=== PATIENT | female | born 2000 ===

== ENCOUNTER 2023-05-12 17:52 | Emergency (ER) | payer BC, SELFPAY ==
--- NOTE | ~2023-05-12 | XR_ITS ---
EXAMINATION: XR HAND, LEFT CLINICAL INFORMATION: Pain COMPARISON: None available. TECHNIQUE: PA, lateral, and oblique views of the left hand. FINDINGS: The bones and soft tissues are normal. No fracture. Alignment is anatomic. Joint spaces are maintained. No erosions or soft tissue calcifications. XR/XR hand LT min 3V IMPRESSION: Normal left hand.
--- NOTE | 2023-05-12 17:58 | ED.GENADULT ---
HPI - General Adult General Chief complaint: Extremity Injury, Upper Stated complaint: Hand lac Time Seen by Provider: 05/12/23 20:41 Source: patient Mode of arrival: ambulatory Limitations: no limitations History of Present Illness HPI narrative: 22-year-old female who presents emergency department for evaluation of a crush injury to the left thumb. She states she accidentally closed her door on her thumb. She had immediate pain. She sustained a laceration. She complains of pain with movement of her thumb . The patient does not know her last tetanus shot was given Related Data Allergies Allergy/AdvReac Type Severity Reaction Status Date / Time No Known Allergies Allergy Unverified 05/03/20 19:48 [No Known Allergies*] Review of Systems Review of Systems: Yes all other systems are reviewed and are negative [facility] Past Medical History [facility] Narrative: Past medical history: None Social History Social History Advance Directives: No Advance Directives Information Provided: No Physical Exam ED Vital Signs: Vital Signs - 24 hr 05/12/23 17:59 Temperature 98.1 F Pulse Rate 120 H Respiratory Rate 18 Blood Pressure 191/100 H Pulse Oximetry 99 Oxygen Delivery Method Room Air BMI result Body Mass Index 23.4 Vital signs revealed an elevated blood pressure of 191/100 and elevated pulse of 120-this is secondary to pain Exam: Extremities: The patient has a superficial laceration/crush injury to the tip of the thumb, she does have tenderness palpation over the MCP joint and PIP joint but has full range of motion passively and actively. Patient does have good light touch. Patient has thick nail serbian on her thumbnail and I am unable to determine if she has a subungual hematoma. She does minimal pain with pressure over the thumb nail. Psych: Pleasant, cooperative Course Course Course Narrative: This is an RME: Additional HPI, ROS, PE not included below will be deferred to primary provider. 22 yo f presents w/ lac to l 1st thumb sp jamming finger in car door. Very anxious. Tetanus staus unclear. plan- xray Medications Administered Discontinued Medications Generic Name Dose Route Start Last Admin Trade Name Freq PRN Reason Stop Dose Admin Diphtheria/Tetanus/Acell Pertussis 0.5 ml 05/12/23 17:57 05/12/23 20:29 Diphth,Pertus(Acell),Tet Adult 0.5 Ml Syringe IM 05/12/23 17:58 0.5 ml .ONCE ONE Administration Medical Decision Making Medical Decision Making MDM Narrative: 22-year-old female who presents emergency department for evaluation of crush injury to her left thumb, patient accidentally closed her thumb in a car door prior to coming to emergency department. Examination did reveal tenderness palpation of MCP joint and PIP joint of the thumb with superficial laceration consistent with a crush/burst injury. X-rays were obtained and there was no acute fracture seen on my interpretation and on the radiologist interpretation. Patient's laceration was cleaned with normal saline and dressed with bacitracin nonstick dressing. A thumb spica splint was applied. After application the patient's thumb remained neurovascular intact. Patient was given a Tdap. She was given printed and verbal instructions and discharged home. Differential Diagnosis Differential Diagnoses: The differential diagnosis associated with the presentation includes Differential diagnosis includes was not limited to crush injury, fracture, contusion, sprain Independent Interpretation I performed an independent interpretation of an: Plain X-Ray Interpretation: My independent interpretation patient's left thumb x-rays as follows: No acute fracture Radiology Impression Discussion of test interpretation with radiology: I have reviewed the radiologist's reading. Radiologist Impression: XR hand LT min 3V IMPRESSION: Normal left hand. Dictated By: Kym Delgado MD Discharge Plan Discharge Clinical Impression: Closed crushing injury of thumb, Need for Tdap vaccination Left thumb sprain Qualifiers: Encounter type: initial encounter Sprain of finger site: unspecified site Qualified Code(s): S63.602A - Unspecified sprain of left thumb, initial encounter Patient Disposition: Home, Self-Care Instructions: Crush Injury (ED) Additional Instructions: Apply bacitracin twice a day to the cut on the tip of your finger Keep covered with a nonstick dressing/banded Wear the thumb spica splint for 3-7 days, this is for your comfort only, if you feel like you can move your thumb and it does not hurt then you can take the splint off. Take ibuprofen 200 mg pills, 2 pills every 6 hours as needed for pain or fever. Take Tylenol (acetaminophen) 500 mg pills, 2 pills every 6 hours as needed for pain or fever. Follow-up with your doctor in 2 days. Please return to the emergency department if your symptoms get worse or if you develop any symptoms that are concerning to you. You received a tetanus, diptheria and Pertussin vaccination (Tdap). This is good for 5 years and will need a booster shot 10 years.
[2023-05-12 17:59] VITALS: BP 191/100; PULSE 120; RESP 18; TEMP 36.7; O2SAT 99; BMI 23.4
[2023-05-12] MEDS: Diphth,Pertus(ACell),Tet Adult 0.5 ML SYRINGE IM (20:29)
== END 2023-05-12 21:11 | disposition home or self-care (01) ==
PROVIDERS: Emergency Provider Emergency Medicine Emergency Medical Services
DX: S63.602A Unspecified sprain of left thumb, initial encounter (principal); S60.312A Abrasion of left thumb, initial encounter; Y29.XXXA Contact with blunt object, undetermined intent, initial encounter; Y93.9 Activity, unspecified; Y92.9 Unspecified place or not applicable; Y99.9 Unspecified external cause status; Z23 Encounter for immunization
CPT/HCPCS: 73130; 90471; 90715; 99282; 99284

== ENCOUNTER 2024-12-09 00:17 | Emergency (ER) | payer BC, SELFPAY ==
--- NOTE | 2024-12-09 | ECG_ITS ---
Test Reason : CHEST PAIN Blood Pressure : */* mmHG Vent. Rate : 77 BPM Atrial Rate : 77 BPM P-R Int : 188 ms QRS Dur : 82 ms QT Int : 360 ms P-R-T Axes : 13 -17 -5 degrees QTcB Int : 407 ms Normal sinus rhythm Minimal voltage criteria for LVH, may be normal variant ( R in aVL ) Borderline ECG No previous ECGs available Referred By: Generic ED Physician Electronically Signed By: JENI ANAND
--- NOTE | ~2024-12-09 | XR_ITS ---
CLINICAL HISTORY: chest pain Chest X-ray, 2 Views COMPARISON: None FINDINGS: No consolidation. No pleural effusion. No pneumothorax. No cardiomegaly. No acute fracture. IMPRESSION: No acute findings. This document has been electronically signed by: Goran Vail MD on 12/09/2024 01:23:05
[2024-12-09 00:31] VITALS: BP 141/86; PULSE 79; RESP 18; TEMP 36.4; O2SAT 97; BMI 29.8
[2024-12-09 00:38] LABS: Basophils Percent Auto 0.3 % (0-2); Eosinophils Absolute Auto 0.1 X10*3/uL (0.0-0.4); Eosinophils Percent Auto 0.8 % (0-4); Hematocrit 37.2 % (37.0-47.0); Hemoglobin 12.2 g/dl (12.0-16.0); Imm Gran Abs Auto 0.03 X10*3/uL (0.00-0.03); Imm Gran Pct Auto 0.3 % (0.0-0.4); Lymphocytes Absolute Auto 3.9 X10*3/uL (1.2-4.9); Lymphocytes Percent Auto 36.7 % (20-40); MANUAL DIFF FLAG NO; Mean Corpuscular HGB Conc 32.8 g/dl (31.0-35.0); Mean Corpuscular Hemoglobin 26.1 pg (27.0-33.0); Mean Corpuscular Volume 79.5 fL (80.0-98.0); Mean Platelet Volume 10.9 fL (9.4-12.3); Monocytes Absolute Auto 0.7 X10*3/uL (0.1-1.2); Monocytes Percent Auto 6.5 % (2-11); Neutrophils Absolute Auto 5.9 x10*3/uL (2.0-8.3); Neutrophils Percent Auto 55.4 % (45-73); Platelet Count 398 X10*3/uL (160-400); Red Blood Count 4.68 X10*6/uL (4.20-5.50); Red Cell Distribution Width 13.2 % (11.0-16.0); White Blood Count 10.6 X10*3/uL (4.8-10.8)
[2024-12-09 00:58] LABS: Alanine Aminotransferase 35 U/L (0-31); Albumin Level 4.1 g/dL (3.5-5.0); Alkaline Phosphatase 113 U/L (39-117); Anion Gap 11 (12-20); Aspartate Amino Transferase 31 U/L (5-31); Bilirubin Direct 0.2 mg/dL (0.0-0.5); Bilirubin Total 0.4 mg/dL (0.0-1.0); Blood Urea Nitrogen 12 mg/dL (9-16); Calcium 9.8 mg/dL (8.4-10.2); Carbon Dioxide 22 mmol/L (22-29); Chloride 108 mmol/L (96-108); Creatinine Clr Calc Pharmacy 120.8; Estimated Glomerular Filt Rate > 60; Glucose Random 165 mg/dL (60-115); Potassium 3.4 mmol/L (3.3-5.1); Sodium 138 mmol/L (135-145); Total Protein 7.6 g/dL (6.5-8.0); Troponin-I High Sensitivity < 2.7 ng/L (<3.5-17.0)
[2024-12-09 01:13] LABS: TSH reflex Free T4 < 0.01 uIU/mL (0.32-4.0)
[2024-12-09 01:43] LABS: Free T4 (Free Thyroxine) 1.44 ng/dL (0.71-1.85)
[2024-12-09 01:54] VITALS: BP 136/84; PULSE 86; RESP 16; TEMP 36.7; O2SAT 97
--- NOTE | 2024-12-09 01:55 | ED.CHESTPAIN ---
HPI - Chest Pain General Chief Complaint: Chest Pain Stated Complaint: CP Time Seen by Provider: 12/09/24 01:54 Source: patient Mode of arrival: ambulatory Limitations: no limitations History of Present Illness ED Provider: Fatimah Louis NP HPI narrative: Patient is a 24-year-old female who presents emergency department for evaluation of substernal chest pain described as a pressure with onset approximately 2 hours prior to arrival with mild nausea but no vomiting. She admits that she was lying supine when the symptoms started. She admits that she has felt similar pain to this in the past when she was diagnosed with DKA. She reports that her blood sugars have been under good control recently. The pain is nonradiating. No associated diaphoresis. Denies exacerbating or alleviating factors, not worse with exertion or deep inspiration. Denies any recent URI symptoms. No fevers or chills. No cough or shortness of breath. Admits to a history of type 1 diabetes and hypothyroidism Graves disease, medication compliance Related Data Previous Rx's ?Medication ?Instructions ?Recorded famotidine 20 mg tablet 20 mg PO DAILY #14 tabs 12/09/24 Allergies Allergy/AdvReac Type Severity Reaction Status Date / Time No Known Allergies Allergy Verified 12/09/24 00:39 [No Known Allergies*] Review of Systems Review of Systems: Yes all other systems are reviewed and are negative PMFSH Past Medical History Attestation statement: The following information was validated with the patient. Source: old records reviewed Medical History Hyperthyroidism Graves disease DM (diabetes mellitus) Social History Social History Smoked in Last 30 Days: No Use of substances other than those prescribed or required for medical reasons: No Advance Directives: No Advance Directives Information Provided: No Do you have a plan to hurt others: No Plan Patient : No Physical Exam Vital Signs: Vital Signs: Last Vital Signs Temp 98.0 F 12/09/24 01:54 Pulse 86 12/09/24 01:54 Resp 16 12/09/24 01:54 BP 136/84 12/09/24 01:54 Pulse Ox 97 12/09/24 01:54 O2 Del Method Room Air 12/09/24 01:54 BMI result Body Mass Index 29.8 Appearance: Alert.?Oriented to person, place and time. No acute distress.?Normal affect. Eyes: Pupils equal, round and reactive to light.? ENT: Pharynx normal.?? Neck: Normal inspection.? Neck supple.??No JVD. CVS: Heart sounds normal. Normal heart rate and rhythm.? Pulses normal.?? Respiratory: No respiratory distress.? Lung sounds clear to auscultation bilaterally?? Abdomen: Soft and non-tender. Normoactive bowel sounds. No pulsatile mass.?? Skin: Skin warm and dry.? Normal skin color.? ?? Extremities: No lower extremity edema.? No calf ttp? Neuro: Moves all extremities spontaneously. Sensation intact bilaterally. CN II-XII intact. No focal neuro deficits. Ambulates with normal steady gait. Course Reevaluation(s) Reevaluation #1: Symptomatic improvement after GI cocktail and ibuprofen. Will discharge home outpatient follow-up with PCP and strict return precautions. All questions answered. Stable for discharge Medications Administered Discontinued Medications Generic Name Dose Route Start Last Admin Trade Name Moisesq PRN Reason Stop Dose Admin Al Hydroxide/Mg Hydroxide 30 ml 12/09/24 02:08 12/09/24 02:17 Magnesium Hydrox/Alum Hydrox 30 Ml Oral.Susp PO 12/09/24 02:09 30 ml ONCE ONE Administration Famotidine 20 mg 12/09/24 02:08 12/09/24 02:17 Famotidine 20 Mg Tablet PO 12/09/24 02:09 20 mg ONCE ONE Administration Ibuprofen 600 mg 12/09/24 02:08 12/09/24 02:17 Ibuprofen 600 Mg Tablet PO 12/09/24 02:09 600 mg ONCE ONE Administration Lidocaine HCl 15 ml 12/09/24 02:08 12/09/24 02:17 Lidocaine Hcl Viscous 2 % 15 Ml Solution MUCOUS MEM 12/09/24 02:09 15 ml ONCE ONE Administration Medical Decision Making Medical Decision Making MDM Narrative: Patient is a 24-year-old female with past medical history type 1 diabetes, hyperthyroidism, Graves disease who presents to the emergency department for evaluation with complaint of chest pain with onset 2 hours prior to arrival while supine as per HPI. Nonradiating, no diaphoresis. Nonreproducible. EKG without signs of ischemia, reveals normal sinus rhythm with ventricular rate of 77, QTC 407, no ST-elevation, has T-wave inversion in lead III, no prior available for comparison. Perc negative not consistent with pulmonary embolism. No recent trauma or injury to suggest pneumothorax. No recent URI symptoms to suggest pneumonia. No abdominal tenderness on examination, lower suspicion for acute hepatobiliary etiology. She denies notable acid reflux however she does admit the symptoms were prominent while supine, and she ate just before lying down. No recent hematemesis, so unlikely PUD. Serum labs were obtained prior to my assumption of care CBC is without leukocytosis anemia or thrombocytopenia. No electrolyte derangement. No SIOBHAN. Non-anion gap hyperglycemia with random glucose of 165. LFTs unremarkable. High sensitive troponin below detectable limits. TSH is low but normal free T4. Chest x-ray is without consolidation or infiltrate to suggest an acute pneumonia. Will trial GI cocktail in the emergency department, suspect reflux versus musculoskeletal etiology. Differential Diagnosis Differential Diagnoses: The differential diagnosis associated with the presentation includes (See narrative above) Admission/Observation Consideration of admission/observation: Escalation of care including admission/observation considered (See narrative above and course narrative for further detail) Lab Data MDM Lab Attestation statement: I reviewed the patient's lab results. 12/09/24 00:32 12/09/24 00:32 Labs: Lab Results 12/09/24 12/09/24 Range/Units 00:32 03:03 WBC 10.6 (4.8-10.8) X10*3/uL RBC 4.68 (4.20-5.50) X10*6/uL Hgb 12.2 (12.0-16.0) g/dl Hct 37.2 (37.0-47.0) % MCV 79.5 L (80.0-98.0) fL MCH 26.1 L (27.0-33.0) pg MCHC 32.8 (31.0-35.0) g/dl RDW 13.2 (11.0-16.0) % Plt Count 398 (160-400) X10*3/uL MPV 10.9 (9.4-12.3) fL Immature Gran % (Auto) 0.3 (0.0-0.4) % Neut % (Auto) 55.4 (45-73) % Lymph % (Auto) 36.7 (20-40) % Rosebud % (Auto) 6.5 (2-11) % Eos % (Auto) 0.8 (0-4) % Baso % (Auto) 0.3 (0-2) % Lymph # (Auto) 3.9 (1.2-4.9) X10*3/uL Rosebud # (Auto) 0.7 (0.1-1.2) X10*3/uL Eos # (Auto) 0.1 (0.0-0.4) X10*3/uL Baso # (Auto) 0.0 (0.0-0.2) X10*3/uL Abs Immat Gran (auto) 0.03 (0.00-0.03) X10*3/uL Absolute Neuts (auto) 5.9 (2.0-8.3) x10*3/uL Absolute Nucleated RBC 0.000 (0.0-0.012) X10*3/uL Nucleated RBC % (auto) 0.0 (0.0-0.2) /100WBC Sodium 138 (135-145) mmol/L Potassium 3.4 (3.3-5.1) mmol/L Chloride 108 (96-108) mmol/L Carbon Dioxide 22 (22-29) mmol/L Anion Gap 11 L (12-20) BUN 12 (9-16) mg/dL Creatinine 0.67 (0.5-1.4) mg/dL Estim Creat Clear Calc 120.8 Estimated GFR > 60 Random Glucose 165 H (60-115) mg/dL Calcium 9.8 (8.4-10.2) mg/dL Total Bilirubin 0.4 (0.0-1.0) mg/dL Direct Bilirubin 0.2 (0.0-0.5) mg/dL AST 31 (5-31) U/L ALT 35 H (0-31) U/L Alkaline Phosphatase 113 (39-117) U/L Troponin I High Sens < 2.7 < 2.7 (<3.5-17.0) ng/L Total Protein 7.6 (6.5-8.0) g/dL Albumin 4.1 (3.5-5.0) g/dL TSH < 0.01 L (0.32-4.0) uIU/mL Free T4 1.44 (0.71-1.85) ng/dL Independent Interpretation I performed an independent interpretation of an: EKG (See narrative above) and Plain X-Ray (See narrative above) Radiology Impression Discussion of test interpretation with radiology: I have reviewed the radiologist's reading. Radiologist Impression: Chest X-ray, 2 Views COMPARISON: None FINDINGS: No consolidation. No pleural effusion. No pneumothorax. No cardiomegaly. No acute fracture. IMPRESSION: No acute findings. External Record Review External record reviewed: Outpatient record Discharge Plan Discharge Clinical Impression: Chest pain Patient Disposition: Home, Self-Care Instructions: Noncardiac Chest Pain (ED) Additional Instructions: As discussed, workup today was very reassuring. You were given medication in the emergency department to treat acid reflux, this seemed to help your symptoms. I have sent a prescription to the pharmacy. Avoid triggers such as fatty foods, spicy foods, tomatoes, onions, coffee, tea, chocolate, and alcohol. Remaining upright after meals for 1-2 hours. Avoid eating at least 3 hours before bedtime. Try sleeping on an incline if possible. Follow-up with your primary care doctor. You may return to emergency department any new or worsening symptoms or concerns. Prescriptions: New famotidine 20 mg tablet 20 mg PO DAILY Qty: 14 0RF Referrals: Jennifer Curry PA [Primary Care Provider] - Print Language: Hungarian
--- NOTE | 2024-12-09 02:04 | MHC.EDTECH ---
at this time this tech performed VS on the pt which were stable, pt changed over into hospital gown and placed on crystal finisher, bloodwork collected in triage and EKG as well.
--- NOTE | 2024-12-09 02:07 | PC.NURSE ---
Pt ambulatory to ED 18 assumed care of pt at this time. A&Ox3 skin pwd respirations even unlabored. satellite project site monitor applied, JEANIE on monitor, VSS. Pt endorsing mid sternal chest tightness beginning while trying to fall asleep. Intermittent, non radiating, with associated nausea, dizziness, and difficulty breathing. Reports feeling pain like this in past and it being DKA. Hx T1DM, hyperthryroid, and graves disease. Labs drawn in WR results received, provider to bedside for primary eval.
[2024-12-09] MEDS: Famotidine 20 MG TABLET PO (02:17)
[2024-12-09] MEDS: Magnesium Hydrox/Alum Hydrox 30 ML ORAL.SUSP PO (02:17)
[2024-12-09] MEDS: Lidocaine HCl Viscous 2 % 15 ML SOLUTION MUCOUS MEM (02:17)
[2024-12-09] MEDS: Ibuprofen 600 MG TABLET PO (02:17)
--- NOTE | 2024-12-09 03:01 | PC.NURSE ---
Report given to Kat MEYER, pt exits my care at this time.
[2024-12-09 03:33] LABS: Troponin-I High Sensitivity < 2.7 ng/L (<3.5-17.0)
[2024-12-09 03:57] VITALS: BP 0/0; PULSE 0; RESP 0; TEMP -17.7; TEMP 0; O2SAT 0
== END 2024-12-09 03:58 | disposition home or self-care (01) ==
PROVIDERS: Nurse Practitioner Family; Emergency Provider Internal Medicine; PCP Physician Assistant
DX: R07.9 Chest pain, unspecified (principal); E10.9 Type 1 diabetes mellitus without complications; E03.9 Hypothyroidism, unspecified
CPT/HCPCS: 36415; 71046; 80048; 80076; 84439; 84443; 84484; 85025; 93005; 99283; 99285

== ENCOUNTER → 2024-12-09 00:22 | Outpatient (BNV) | payer BC, SELFPAY | PROVIDERS: Emergency Provider Internal Medicine; PCP Physician Assistant; Visit Provider Internal Medicine | DX: R07.9 Chest pain, unspecified (principal) | CPT/HCPCS: 93010 ==

== ENCOUNTER → 2024-12-09 00:50 | Outpatient (BNV) | payer BC, SELFPAY | PROVIDERS: Emergency Provider Internal Medicine; Visit Provider Radiology Diagnostic Radiology | DX: R07.9 Chest pain, unspecified (principal) | CPT/HCPCS: 71046 ==